=== PATIENT | male | born 1970 | race African-American/Black ===

== ENCOUNTER 2016-12-17 21:16 | Emergency (ER) | payer MEDICAID ==
[~2016-12-17] VITALS: Ht 177.8 cm; Wt 72.6 kg
[~2016-12-17 21:16] MED LIST: ALPR0.25
--- NOTE | 2016-12-17 21:24 | NUR ---
PT BIB [facility] C/O "I DRANK TOO MUCH TODAY". ALERT, VERBALLY RESPONSIVE. SOMEWHAT UNCOOPERATIVE AND BELIGERENT WITH STAFF. NAD NOTED. DENIES PHYSICAL COMPLAINT. IN ER BED 14.
[2016-12-17] MEDS ORDERED: Thiamine 100 MG/ML VIAL ONE (21:30)
[2016-12-17] MEDS ORDERED: IV NS 0.9% 1,000 ML ONE (21:30)
[2016-12-17] MEDS ORDERED: Thiamine 100 MG in IV D5W 50 ML IV SCH (21:30)
[2016-12-17] MEDS ORDERED: IV SET PRIMARY 1 EA INFUS.SET MC ONE (21:30)
[2016-12-17] MEDS ORDERED: IV NS 0.9% 1,000 ML IV ONE (21:30)
[2016-12-17] MEDS ORDERED: IV NS 0.9% 1,000 ML BAG IV ONE (21:30)
[2016-12-17] MEDS ORDERED: IV D5W 50 ML IV ONE (21:31)
[2016-12-17] MEDS ORDERED: IV SET PRIMARY PUMP SET 1 EA INFUS.SET MC ONE (21:31)
[2016-12-17 21:33] LABS: BASOPHILS % (AUTO) 0.6 % (0.0-2.0); EOSINOPHILS # (AUTO) 0.1 /CMM (0.0-0.7); EOSINOPHILS % (AUTO) 1.5 % (0.0-6.0); HEMATOCRIT 38 % (39-51); HEMOGLOBIN 12.7 g/dL (13.5-17.5); LYMPHOCYTES # (AUTO) 2.3 /CMM (0.8-4.8); LYMPHOCYTES % (AUTO) 33.2 % (20.0-44.0); MEAN CORPUSCULAR HEMOGLOBIN 28 PG (26.0-33.0); MEAN CORPUSCULAR HGB CONC 34 g/dl (31.0-36.0); MEAN CORPUSCULAR VOLUME 84 fL (80-96); MONOCYTES # (AUTO) 0.6 /CMM (0.1-1.30); NEUTROPHILS # (AUTO) 3.9 /CMM (1.8-8.9); NEUTROPHILS % (AUTO) 56.7 % (43.0-81.0); PLATELET COUNT (AUTO) 225 /CMM (150-450); RDW COEFFICIENT OF VARIATION 12.6 (11.5-15.0); WHITE BLOOD COUNT (AUTO) 6.9 K/uL (4.3-11.0)
[2016-12-17 21:49] LABS: ACETAMINOPHEN < 2 ug/ml (10-30); ALANINE AMINOTRANSFERASE 13 U/L (12-78); ALBUMIN 3.8 g/dL (3.4-5.0); ALCOHOL, BLOOD 250 mg/dL (0-0); ALKALINE PHOSPHATASE 64 U/L (46-116); ASPARTATE AMINOTRANSFERASE 16 U/L (15-37); BILIRUBIN,DIRECT 0.1 mg/dL (0.0-0.2); BILIRUBIN,TOTAL 0.4 mg/dL (0.2-1.0); CALCIUM, SERUM 8.3 mg/dL (8.5-10.1); CARBON DIOXIDE 27 mmol/L (21-32); CHLORIDE 109 mmol/L (98-107); CREATININE 0.7 mg/dL (0.6-1.3); GFR 147 mL/min (>60); GLUCOSE 115 mg/dL (74-106); POTASSIUM 3.4 mmol/L (3.5-5.1); SALICYLATE 1.1 mg/dL (2.8-20.0); SODIUM SERUM 145 mmol/L (136-145); TOTAL PROTEIN, SERUM 7.8 g/dL (6.4-8.2); UREA NITROGEN, BLOOD 10 mg/dL (7-18)
--- NOTE | 2016-12-17 21:51 | NUR ---
PT NOW ASLEEP BUT AROUSABLE TO LIGHT PAIN. ON MONITOR WITH IVF ONGOING.
--- NOTE | 2016-12-17 21:54 | NUR ---
MD AT BEDSIDE FOR REASSESSMENT. CLARIFIED MEDS WITH MD. ONLY ADMIN 1L IV NS.
--- NOTE | 2016-12-17 23:26 | NUR ---
PT NOW AWAKE, ALERT, RESPONSIVE TO VERBAL STIMULUS. A/OX4. REPORTS NAUSEA, NO VOMITING. MD NOTIFIED.
[2016-12-17] MEDS ORDERED: ONDANSETRON HCL/PF 4 MG/2 ML VIAL ONE (23:29)
[2016-12-18] MEDS ORDERED: ONDANSETRON HCL/PF 4 MG/2 ML VIAL IV ONE
--- NOTE | 2016-12-18 01:30 | NUR ---
Patient is resting comfortably in bed with eyes closed. Easily aroused. VSS
--- NOTE | 2016-12-18 03:30 | NUR ---
PT ALERT AND ORIENTED X 4. PT AMBULATORY WITH STEADY GAIT. NO SIGNS OF DISTRESS NOTED. PT REQUESTING TO BE DISCHARGED HOME. DR JOSEPH NOTIFIED.
[2016-12-18 04:09] VITALS: BP 114/72
== END 2016-12-18 04:10 | disposition home or self-care (01) ==
LOC: ER 21:18
DX: F10.129 Alcohol abuse with intoxication, unspecified (principal); R41.82 Altered mental status, unspecified; F41.9 Anxiety disorder, unspecified; F17.210 Nicotine dependence, cigarettes, uncomplicated
CPT/HCPCS: 36415; 80048-TC; 80076-TC; 85025-TC; A4606; G0480; G6039-TC; J2405; J3411; J7030; J7060; Z7610

== ENCOUNTER 2017-09-03 17:10 | Emergency (ER) | payer OTHER, MEDICAID ==
[~2017-09-03] VITALS: Ht 172.7 cm; Wt 68.0 kg
[2017-09-03 17:11] VITALS: BP 138/98
[2017-09-03] MEDS ORDERED: ACETAMINOPHEN ES 500 MG TABLET ONE (17:14)
[2017-09-03] MEDS ORDERED: ACETAMINOPHEN ES 500 MG TABLET PO ONE (17:30)
== END 2017-09-03 17:18 ==
LOC: ER 17:11
DX: Z02.89 Encounter for other administrative examinations (principal); S00.11XA Contusion of right eyelid and periocular area, initial encounter; F41.9 Anxiety disorder, unspecified; Z88.6 Allergy status to analgesic agent; F17.200 Nicotine dependence, unspecified, uncomplicated; W18.39XA Other fall on same level, initial encounter; Y93.01 Activity, walking, marching and hiking; Y92.89 Other specified places as the place of occurrence of the external cause; Y99.8 Other external cause status
CPT/HCPCS: A4606; Z7610

== ENCOUNTER 2019-01-01 18:44 | Emergency (ER) | payer MEDICAID, OTHER ==
[~2019-01-01] VITALS: Ht 175.3 cm; Wt 79.4 kg
--- NOTE | 2019-01-01 18:53 | NUR ---
ROLDAN DARNELL FROM [facility] FOR ABD PAIN X 6-7DAYS, REPORTS N/V; PT AAOX4, PT AMBULATORY TO BED 15, PT ON MONITOR, VSS, NAD NOTED, PENDING ER PROVIDER KEERTHI
[2019-01-01] MEDS: IV NS 0.9% 1,000 ML BAG IV ONE (19:30)
[2019-01-01 19:42] LABS: BASOPHILS % (AUTO) 0.2 % (0.0-2.0); EOSINOPHILS % (AUTO) 0.8 % (0.0-6.0); HEMATOCRIT 44 % (39-51); HEMOGLOBIN 14.5 g/dL (13.5-17.5); MEAN CORPUSCULAR HGB CONC 33 g/dl (31.0-36.0); MEAN CORPUSCULAR VOLUME 89 fL (80-96); MONOCYTES % (AUTO) 10.5 % (2.0-12.0); NEUTROPHILS # (AUTO) 7.9 /CMM (1.8-8.9); NEUTROPHILS % (AUTO) 78.5 % (43.0-81.0); PLATELET COUNT (AUTO) 261 /CMM (150-450); RED BLOOD CELL COUNT(AUTO) 4.92 MIL/uL (4.5-6.0)
[2019-01-01] MEDS ORDERED: ONDANSETRON HCL/PF 4 MG/2 ML VIAL ONE ×2 (19:53)
[2019-01-01 19:55] LABS: ALBUMIN 3.6 g/dL (3.4-5.0); BILIRUBIN,DIRECT 0.1 mg/dL (0.0-0.2); BILIRUBIN,TOTAL 0.4 mg/dL (0.2-1.0); CALCIUM, SERUM 9.2 mg/dL (8.5-10.1); CREATININE 0.8 mg/dL (0.6-1.3); POTASSIUM 4.4 mmol/L (3.5-5.1); TOTAL PROTEIN, SERUM 8.1 g/dL (6.4-8.2)
[2019-01-01] MEDS: ONDANSETRON HCL/PF 4 MG/2 ML VIAL IVP ONE (19:59)
[2019-01-01] MEDS ORDERED: KETOROLAC TROMETHAMINE 15 MG/ML VIAL ONE (20:03)
[2019-01-01] MEDS ORDERED: MORPHINE SULFATE INJ 2 MG/ML DISP.SYRIN ONE (20:04)
--- NOTE | 2019-01-01 20:15 | NUR ---
VERBAL ORDER FROM MARTA CRUZ, TORADOL 15MG IVP
--- NOTE | 2019-01-01 20:20 | NUR ---
PER MARTA CRUZ, CANCEL TORADOL 15MG IVP, PT IS ALLERGIC TO IBUPROFEN. GIVE MORPHINE 2MG IVP INSTEAD.
[2019-01-01] MEDS: MORPHINE SULFATE INJ 2 MG/ML DISP.SYRIN IV ONE (20:30)
[2019-01-01 20:56] VITALS: BP 149/90
--- NOTE | 2019-01-01 20:57 | NUR ---
PT WAS D/C BACK WITH SECURITY DEVELOPER TO [facility], PT AMBULATORY WITH STEADY GAIT, ALL PPW GIVEN.
== END 2019-01-01 20:57 ==
LOC: ER 18:44
DX: R10.84 Generalized abdominal pain (principal); R11.10 Vomiting, unspecified; R19.7 Diarrhea, unspecified; F10.10 Alcohol abuse, uncomplicated; F41.9 Anxiety disorder, unspecified; F17.200 Nicotine dependence, unspecified, uncomplicated; Y90.9 Presence of alcohol in blood, level not specified; Z88.6 Allergy status to analgesic agent; Z60.2 Problems related to living alone; Z02.89 Encounter for other administrative examinations
CPT/HCPCS: 36415; 80048; 80076; 83690; 85025; 96361; 96374; 96375; 99283; J2270; J2405; J1885